=== PATIENT | female | born 1975 | race American Indian/Alaskan Native ===

== ENCOUNTER 2016-05-06 11:35 | Day surgery (SDC) | payer MEDICAID ==
[2016-05-06 12:07] VITALS: BP 112/70
[2016-05-06 13:05] LABS: INR 1.01 (0.87-1.13)
[2016-05-06 13:06] LABS: Partial Thromboplastin Time 29.9 Sec. (24.2-36.6)
[2016-05-06 13:42] LABS: Blood Urea Nitrogen 8 mg/dL (7-17)
--- NOTE | 2016-05-06 14:44 | Cat Scan Report ---
CT of the neck with and without contrast. Findings: Helical acquisition with reformatted coronal and sagittal images was performed. Comparison is made to the previous study on April 16, 2015. The parotid and submandibular glands appear normal and unchanged. There is a mildly prominent jugular nodes on the right side measuring 1.4 cm in diameter which apparently represents the palpable nodule. This is not changed in size as the previous study. This is situated just anterior to the carotid artery and jugular vein and is just lateral to the common carotid bifurcation. There are no new soft tissue masses. A few scattered small nodes are seen in the spinal accessory chain, also stable. There are no glottic or subglottic abnormalities. Impression: Minimally prominent right jugular node, 1.4 cm in diameter. After discussion with referring physician , it was decided not to perform an FNA given the location and absence of interval change.
== END 2016-05-06 14:36 | disposition home or self-care (01) ==
LOC: US 11:35 → OPU 11:35 → EDSTATUS 12:00 → OPU 14:36
PROVIDERS: ATTEND Otolaryngology
DX: Q18.0 Sinus, fistula and cyst of branchial cleft (principal); Z53.8 Procedure and treatment not carried out for other reasons; F17.210 Nicotine dependence, cigarettes, uncomplicated
CPT/HCPCS: 36415; 70492; 82565; 84520; 85610; 85730; Q9967

== ENCOUNTER 2017-11-22 16:45 | Emergency (ER) | payer MEDICAID | END 2017-11-22 19:45 | disposition left against medical advice (07) | LOC: ED 16:45 | DX: R21 Rash and other nonspecific skin eruption (principal); Z53.21 Procedure and treatment not carried out due to patient leaving prior to being seen by health care provider ==